=== PATIENT | female | born 1985 | race Caucasian/White ===

== ENCOUNTER 2019-06-01 16:23 | Emergency (ER) | payer BC ==
--- NOTE | 2019-06-01 16:45 | PDOC ---
Rapid Medical Evaluation Time Seen by Provider: 06/01/19 16:39 Medical Evaluation: Allergies Allergy/AdvReac Type Severity Reaction Status Date / Time No Known Allergies Allergy Verified 06/01/19 16:39 06/01/19 16:45 Pt c/o: vag bleeding, about 9 weeks via IVF pt on brief exam: vss, pt ordered for: u/s , labs, urine pt to proceed to the ED Discharge Disposition - Diagnosis Vagina bleeding - Referrals - Patient Instructions - Post Discharge Activity
[2019-06-01 16:46] VITALS: BMI 23.0
--- NOTE | 2019-06-01 17:23 | PDOC ---
History of Present Illness - General Stated Complaint: ABD PAIN/VAGINAL BLEEDING/9 WKS PREG Time Seen by Provider: 06/01/19 16:39 Past History - Past Medical History Allergies/Adverse Reactions: Allergies Allergy/AdvReac Type Severity Reaction Status Date / Time No Known Allergies Allergy Verified 06/01/19 16:39 COPD: No Other medical history: IVF by hx - Surgical History Abdominal Surgery: Yes (polyps in uterus) - Psycho Social/Smoking Cessation Hx Smoking History: Never smoked Hx Alcohol Use: No Drug/Substance Use Hx: No *Physical Exam - Vital Signs Last Vital Signs Temp Pulse Resp BP Pulse Ox 98.1 F 71 18 106/70 99 06/01/19 16:43 06/01/19 16:43 06/01/19 16:43 06/01/19 16:43 06/01/19 16:43 ED Treatment Course - LABORATORY CBC & Chemistry Diagram: 06/01/19 18:40 06/01/19 18:40 Medical Decision Making - Medical Decision Making 06/01/19 17:18 HPI: 33yo F (miscarriage 12/2018 at 4wks; this twins), hx Raynaud's, 9w5d by TVUS (05/28/19 TVUS 9w1d, LMP 03/05/19, IVF transfer 04/11/19) with twins s/p 1 fetus stopping development with projected reabsorption ~2wks ago (with decline in HCG since then, HCG 05/28/19 110,330) presents from home with 2 days light vaginal spotting, lower abdominal cramping, and lower back pain. Vaginal spotting of dark brown blood without clots or tissue fill ~1 panty liner since started yesterday, light yesterday then had 1 "gush" of blood today with some "grains". Denies trauma, heavy exertion, prior bleeding. Pain is diffuse lower abdominal/pelvic cramping radiating to b/l flanks. Denies hx kidney stones, UTI, pyelo. Stopped progesterone on Tuesday. Tuesday had TVUS and HCG and told baby A was fine with normal FHR, 9w1d, HCG 110,330. HCG has been declining since baby B stopped development ~2wks ago and told HCG may continue to decline as Baby B is resorbed. Endorses intermittent nausea and vomiting daily worse in AM x4 wks, able to keep down food and water. No pain or nausea meds tried and doesn't want any. Takes PNVs. Endorses 4wks white creamy discharge without smell or irritation, no changes recently. Denies water breaking, movement, vaginal irritation, fever, chills, fatigue, headache, dizziness, numbness/tingling, weakness, vision changes, shortness of breath, cough, chest pain, palpitations, leg swelling, blood in stool, diarrhea, constipation, dysuria, hematuria, urgency/frequency, confusion. PCP - [facility] IVF - Dr Rajput Senior Ruby Developer - Dr Thomas (never seen, first appt scheduled 06/04/19) ROS: Constitutional: Negative for chills, fever, fatigue, diaphoresis. HENT: Negative for sore throat, rhinorrhea, congestion. Eyes: Negative for visual disturbance. Respiratory: Negative for shortness of breath, cough, and wheezing. Cardiovascular: Negative for chest pain, palpitations, and leg swelling. Gastrointestinal: Positive for abdominal pain, nausea, vomiting. Negative for blood in stool, constipation, diarrhea. Genitourinary: Positive for vaginal bleeding, pelvic pain, flank pain b/l. Negative for dysuria and hematuria. Musculoskeletal: Positive for lower back pain. Negative for myalgias and neck pain. Skin: Negative for rash. Neurological: Negative for light-headedness, dizziness, vertigo, syncope, weakness, numbness and headaches. Psychiatric/Behavioral: Negative for behavioral problems and confusion. PE: Gen: Alert, NAD, comfortable-appearing. HEENT: PERRL, EOMI, MMM, NCAT. No conjunctival pallor. Sclera are non-icteric. CV: Regular rate and rhythm. No murmurs, rubs, or gallops. PULM: No resp distress. CTAB, no wheezes, rales, or rhonchi. ABD: soft, mild diffuse lower abdominal TTP, ND, no rebound tenderness or guarding, no CVA tenderness. PELVIC: External genitalia unremarkable. Minimal dark brown blood without clots or tissue and no discharge seen with speculum exam. Cervix visualized and is unremarkable (closed in appearance without any protruding material or active bleeding). Bimanual exam without cervical motion tenderness, adnexal tenderness, or any masses appreciated. Os closed by bimanual exam. BACK: No TTP of c/t/l-spine. No step-offs or deformities. +slight b/l flank/ paraspinal L-spine TTP. MSK: No bony deformities. 2+ pulses in all extremities. NEURO: AAOx3. PERRL. No gross CN deficits. Strength and sensation grossly intact throughout. EXTREMITIES: No cyanosis. No clubbing. No edema. No calf tenderness. PSYCH: Normal mood and thought pattern. SKIN: Warm and dry. Normal capillary refill. No rashes. No jaundice. MDM: 33yo F (miscarriage 12/2018 at 4wks; this twins), hx Raynaud's, 9w5d by TVUS (05/28/19 TVUS 9w1d, LMP 03/05/19, IVF transfer 04/11/19) with twins s/p 1 fetus stopping development with projected reabsorption ~2wks ago (with decline in HCG since then, HCG 05/28/19 110,330) presents from home with 2 days light vaginal spotting, lower abdominal cramping, and lower back pain. Hemodynamically stable, afebrile, os closed, minimal dark brown blood in vaginal canal without active bleeding from os, mild diffuse lower abdominal and lower back TTP. POCUS with Attending: single IUP w/ movement, FHR 175bpm, CRL 10w1d, no adnexal masses or cysts, no free fluid Most likely threatened (s) to Baby A and/or Baby B. Due to prior TVUS's and POCUS, very low concern for anembryonic , heterotopic , ectopic , or molar . Ddx also includes round ligament pain, ovarian torsion, Rh sensitization, ovarian cyst/cyst rupture. No longer actively bleeding on pelvic exam, no s/s of anemia, approx 1 liner of blood since yesterday - obtain CBC, but low concern for massive hemorrhage or anemia. Obtain UA/UC to evaluate for asymptomatic UTI. -CBC,CMP,T&S,HCG,UA/UC -TVUS -Pain and nausea management: pt refuses any medications -Dispo: pending w/u, likely d/c home 06/01/19 20:10 TVUS reviewed: nonviable twin A at 6w6d. Viable twin B at 10w2d. Labs reviewed: notable for B+, no anemia, no UTI Discussed inevitable on Baby A and threatened of Baby B. Will discharge home with synthetic chemist f/u scheduled with Dr Thomas on Tuesday. Return precautions given. Pt understands all discharge instructions and all questions were answered. Discharge - Discharge Information Problems reviewed: Yes Clinical Impression/Diagnosis: Vagina bleeding, Inevitable , Threatened miscarriage Condition: Stable Disposition: HOME - Admission No - Follow up/Referral Referrals: Jose F Thomas MD [Staff Physician] - - Patient Discharge Instructions Patient Printed Discharge Instructions: DI for Threatened Additional Instructions: You have been seen in the Emergency Department for your vaginal bleeding and cramping. Your exam, ultrasound, and labs indicate that you have one nonviable twin and one viable twin at this time. The nonviable twin will be inevitably aborted. The viable twin could continue as a normal but there is a change that it will be a miscarriage as well. You will need further evaluation by your Consumer Relations Specialist to monitor the progress. Go to your scheduled appointment with Dr Thomas this Tuesday. Return to the Emergency Department immediately if you experience worsening bleeding or pain, or any other new or worsening symptom. - Post Discharge Activity
[2019-06-01 19:23] LABS: BASO % 0.8 % (0-2.0); EOS % 0.9 % (0-4.5); HEMATOCRIT 34.7 % (32.4-45.2); HEMOGLOBIN 12.1 GM/dL (10.7-15.3); MCH 32.4 pg (25.7-33.7); MCHC 34.7 g/dl (32.0-36.0); MEAN CELL VOLUME 93.5 fl (80-96); MEAN PLT VOLUME 8.2 fl (7.5-11.1); MONO % 6.3 % (3.8-10.2); PH,URINE 6.5 (5.0-8.0); PLATELET COUNT 245 K/MM3 (134-434); RBC 3.72 M/mm3 (3.60-5.2); RDW 11.8 % (11.6-15.6); URINE APPEARANCE CLEAR; URINE BILIRUBIN NEGATIVE (NEGATIVE); URINE COLOR YELLOW; URINE GLUCOSE (UA) NEGATIVE (NEGATIVE); URINE KETONE NEGATIVE (NEGATIVE); URINE LEUK ESTERASE NEGATIVE (NEGATIVE); URINE NITRITE NEGATIVE (NEGATIVE); URINE PROTEIN NEGATIVE (NEGATIVE); URINE UROBILINOGEN 0.2 mg/dL (0.2-1.0); WHITE BLOOD COUNT 6.8 K/mm3 (4.0-10.0)
[2019-06-01 19:51] LABS: ALBUMIN 3.5 g/dl (3.4-5.0); BILIRUBIN,TOTAL 0.3 mg/dL (0.2-1); BLOOD UREA NITROGEN 7.3 mg/dL (7-18); CALCIUM 8.7 mg/dL (8.5-10.1); CREATININE 0.5 mg/dL (0.55-1.3); TOT PROT 6.7 g/dl (6.4-8.2)
[2019-06-01 20:58] VITALS: BP 113/61; PULSE 74; TEMP 98.3
--- NOTE | 2019-06-02 01:26 | PDOC ---
Documentation entered by Denia Handley SCRIBE, acting as scribe for Cory Johnson DO. Cory Johnson DO: This documentation has been prepared by the Ender morales Adrianna, SCRIBE, under my direction and personally reviewed by me in its entirety. I confirm that the documentation accurately reflects all work, treatment, procedures, and medical decision making performed by me. Attending Attestation - Resident Resident Name: Kenia Tate - [facility] HPI: The patient is a 33 year old female, currently at ~9 weeks 5 days gestation by last US (which showed twin gestation, one of which was being resorbed with failure to progress, coming in today for vaginal spotting and lower abdominal cramping that began earlier today. Patient notes she had a gush of brown fluid and some abdominal cramping. She is worried about the twin that is left. - Physicial Exam PE: GENERAL: Well developed, well nourished. Awake and alert. No acute distress. HEENT: Normocephalic, atraumatic. PERRLA, EOMI. No conjunctival pallor. Sclera are non-icteric. Moist mucous membranes. Oropharynx is clear. NECK: Supple. Full ROM. No JVD. Carotid pulses 2+ and symmetric, without bruits. No thyromegaly. No lymphadenopathy. CARDIOVASCULAR: Regular rate and rhythm. No murmurs, rubs, or gallops. Distal pulses are 2+ and symmetric. PULMONARY: No evidence of respiratory distress. Lungs clear to auscultation bilaterally. No wheezing, rales or rhonchi. ABDOMINAL: Soft. Non-tender. Non-distended. No rebound or guarding. No organomegaly. Normoactive bowel sounds. PELVIC: Defer to resident note. OS is closed. MUSCULOSKELETAL: Normal range of motion at all joints. No bony deformities or tenderness. No CVA tenderness. EXTREMITIES: No cyanosis. No clubbing. No edema. No calf tenderness. SKIN: Warm and dry. Normal capillary refill. No rashes. No jaundice. NEUROLOGICAL: Alert, awake, appropriate. Cranial nerves 2-12 intact. PSYCHIATRIC: Cooperative. Good eye contact. Appropriate mood and affect. - Medical Decision Making Assesment and Plan: This is a 33 year old female with vaginal bleeding and likely threatened miscarriage. Plan for Rh type, CBC to check hemoglobin, Beta HcG, comprehensive US, and reassessment. POCUS: Single live IUP. movement, FHR 175. No adnexal mass or cyst. No free fluid. MDM: Given that patient is no longer actively bleeding and the OS is closed, findings represent threatened miscarriage. Patient is B+ blood type, no indication for Rhogam. Will confirm and repeat. Reassessment: Patient is ready for discharge. Comprehensive US demonstrates one that is viable with a normal heart rate and crown rump length of 10 weeks 2 days. Other twin gestation is no longer viable, which is likely due to her vaginal bleeding. Patient has what appears to be one complete , with a nonviable twin at 6 weeks and 6 days and a viable twin at 10 weeks 2 days. Patient with threatened miscarriage. Patient's blood type is B+. No indication for Rhogam at this time. She has follow up with [facility] Tuesday. Patient's hemoglobin is stable, with stable vitals. She was given return precautions, and is stable for discharge.
== END 2019-06-01 20:45 | disposition home or self-care (01) ==
LOC: JER 16:23
DX: O20.0 Threatened abortion (principal); Z3A.09 9 weeks gestation of pregnancy; N93.9 Abnormal uterine and vaginal bleeding, unspecified
CPT/HCPCS: 36415; 76817-TC; 80053; 81003; 84702; 85025; 86850; 86900; 86901; 87086; 99284-25

== ENCOUNTER 2020-01-01 07:15 | Inpatient (IN) | payer BC, OTHER ==
--- OUTSIDE RECORDS SUMMARY | 2020-01-01 08:00 | XMS ---
:1985 Author Organization [facility] Name Relationship Address Phone UE Unavailable Unavailable Unavailable [employer]HER [address] [place] [address] Re-disclosure Warning The records that you are about to access may contain information from federally- assisted alcohol or drug abuse programs. If such information is present, then the following federally mandated warning applies: This information has been disclosed to you from records protected by federal confidentiality rules (42 CFR part 2). The federal rules prohibit you from making any further disclosure of this information unless further disclosure is expressly permitted by the written consent of the person to whom it pertains or as otherwise permitted by 42 CFR part 2. A general authorization for the release of medical or other information is NOT sufficient for this purpose. The Federal rules restrict any use of the information to criminally investigate or prosecute any alcohol or drug abuse patient.The records that you are about to access may contain highly sensitive health information, the redisclosure of which is protected by Article 27-F of the [facility] Public Health law. If you continue you may haveaccess to information: Regarding HIV / AIDS; Provided by facilities licensed or operated by the [facility] Office of Mental Health; or Provided by the [facility] Office for People With Developmental Disabilities. If such information is present, then the following [facility] mandated warning applies: This information has been disclosed to you from confidential records which are protected by state law. State law prohibits you from making any further disclosure of this information without the specific written consent of the person to whom it pertains, or as otherwise permitted by law. Any unauthorized further disclosure in violation of state law may result in a fine or fdc sentence or both. A general authorization for the release of medical or other information is NOT sufficient authorization for further disclosure. Insurance Providers Payer name Policy type Policy ID Covered Covered green party's Policy P daniel / Coverage green party ID relationship to [facility] type [place] SELF PAY SP INSURANCE
[2020-01-01] MEDS ORDERED: DEXTROSE 5%-LACTATED RINGERS 1,000 ML IV SCH (09:00)
--- NOTE | 2020-01-01 09:09 | HP ---
Past Medical History - Primary Care Physician PCP:: Jose F Thomas - Admission Chief Complaint: 34yo P0 with at EGA 40w3d admitted for labor induction. History of Present Illness: complicated by: AMA LGA baby unfavorable cervix GBS positive vaginal cx IVF History Source: Patient, Medical Record Limitations to Obtaining History: No Limitations - Past Medical History CLIENT SERVICE SUPERVISOR: No: Alzheimer's, CVA, Dementia, Migraine, Multiple Sclerosis, Peripheral Neuropathy, Parkinson's, Seizure, Syncope, TIA, Vertigo, Other Cardiovascular: No: AFIB, Aneurysm, Aortic Insufficiency, Aortic Stenosis, CAD, CHF, Deep Vein Thrombosis, HTN, Hyperlipdemia, FL, Mitral Insufficiency, Mitral Stenosis, Murmur, Pulmonary Hypertension, Other Pulmonary: No: Asthma, Bronchitis, Cancer, COPD, O2 Dependent, Pneumonia, Previously Intubated, Pulmonary Embolus, Pulmonary Fibrosis, Sleep Apnea, Other Gastrointestinal: No: Ascites, Cancer, Constipation, Crohn's Disease, Diverticulitis, Diverticulosis, Esophageal Varices, Gastritis, GERD, GI Bleed, Hemorrhoids, Hiatal Hernia, Inflamatory Bowel Disease, Irritable Bowel Disease, Pancreatitis, Peptic Ulcer Disease, Ulcerative Colitis, Other Hepatobiliary: No: Cirrhosis, Cholelithiasis, Cholecystitis, Choledocholith iasis, Hepatitis A, Hepatitis B, Hepatitis C, Other Renal/: No: Renal Failure, Renal Inusuff, BPH, Cancer, Hematuria, Hemodialysis, Neurogenic Bladder, Renal Calculi, UTI, Other ...: 2 ...Spon : 1 ... Weeks Gestation by Dates: 40.3 Heme/Onc: Yes: Anemia Infectious Disease: No: AIDS, C-Diff, Herpes Zoster, HIV, MRSA, STD's, Tuberculosis, VREF, Other Psych: No: Addictions, Anxiety, Bipolar, Depression, Panic, Psychosis, Schizophrenia, Other Rheumatology: Yes: Other (Nikolas's) ENT: No: Allergic Rhinitis, Sinusitis, Other Endocrine: No: Stephen's Disease, Brianna's Disease, Diabetes Insipidus, Diabetes Mellitus, Hyperparathyroidism, Hyperthyroidism, Hypothyroidism, Osteopenia, SIADH, Other Dermatology: No: Basal Cell, Cellulitis, Eczema, Melanoma, Psoriasis, Squamous Cell, Other - Past Surgical History Past Surgical History: Yes: None Hx Myomectomy: No Hx Transabdominal Cerclage: No Additional Surgical History: Hysteroscopy - Smoking History Smoking history: Never smoked Have you smoked in the past 12 months: No - Alcohol/Substance Use Hx Alcohol Use: No History of Substance Use: reports: None - Social History Usual Living Arrangement: Yes: With Spouse Do you think of yourself as: Straight/Heterosexual ADL: Independent Occupation: Teacher History of Recent Travel: No Home Medications - Allergies Allergies/Adverse Reactions: Allergies Allergy/AdvReac Type Severity Reaction Status Date / Time bee venom protein (honey bee) Allergy Severe Difficulty Verified 01/01/20 10:04 Breathing shellfish derived Allergy Severe Difficulty Verified 01/01/20 10:04 Breathing - Home Medications Home Medications: Ambulatory Orders Vitamins (Sjr) - 1 tab PO DAILY 01/01/20 Family Medical History Family History: Unremarkable Review of Systems - Review of Systems Constitutional: reports: No Symptoms Eyes: reports: No Symptoms HENT: reports: No Symptoms Neck: reports: No Symptoms Cardiovascular: reports: No Symptoms Respiratory: reports: No Symptoms Gastrointestinal: reports: No Symptoms Genitourinary: reports: No Symptoms Breasts: reports: No Symptoms Reported Musculoskeletal: reports: No Symptoms Integumentary: reports: No Symptoms Neurological: reports: No Symptoms Endocrine: reports: No Symptoms Hematology/Lymphatic: reports: No Symptoms Psychiatric: reports: No Symptoms Pain Intensity: 0 Physical Exam - Maternity Constitutional: Yes: Well Nourished, No Distress, Calm Eyes: Yes: WNL, Conjunctiva Clear, EOM Intact HENT: Yes: WNL, Atraumatic, Normocephalic Neck: Yes: WNL, Supple, Trachea Midline Cardiovascular: Yes: WNL, Regular Rate and Rhythm Lungs: Clear to auscultation, Normal air movement Breast(s): Yes: WNL - Abdominal Exam/OB Fundal Height: 41 Number of Fetuses: Single Presentation: Vertex Contractions: Yes Regularity: Irregular Intensity: Unaware Monitor Mode: External Heart Rate (range): 130 Heart Rate Location: Midline Category: I Accelerations: Uniform Decelerations: None - Vaginal Exam/OB Vaginal Bleeding: No Speculum Exam: No Dilatation (cm): 0 Effacement (%): 0 Amniotic Membrane Status: Intact Presentation: Vertex/Position Station: -4 (Gynecoid pelvimetry, EFW ~4100 gm) - Physical Exam Musculoskeletal: Yes: WNL Extremities: Yes: WNL Edema: No Integumentary: Yes: WNL Deep Tendon Reflex Grade: Normal +2 ...Motor Strength: WNL Psychiatric: Yes: WNL, Alert, Oriented Hemorrhage Risk Assessment - Risk Factors Medium Risk Factors: Yes: EFW greater than 4000g High Risk Factors: Yes: None Risk Score: 1 Risk Level: Medium Risk Imaging - Results Ultrasound: Report Reviewed Assessment/Plan 34yo P0 with at EGA 40w3d admitted for labor induction. Pt is not in labor. Fetus with Category I tracing. Adequate gynecoid pelvimetry on exam. We had long discussion re: risks, benefits, and alternatives of labor induction. I explained the options of expectant management awaiting spontaneous labor, induction of labor, and elective section. The risks of uterine tachysystole, distress, uterine rupture, need for emergency C/S, hemorrhage, infection, scarring, etc. were discussed. We also discussed the risks of meconium aspiration, shoulder dystocia, and anesthesia options. The pt requested to proceed with induction. We discussed the alternative methods of induction with Cervidil, Cytotec, Folley ballon, and pitocin. The pt prefers Cervidil followed by pitocin, if needed.
[2020-01-01] MEDS ORDERED: DINOPROSTONE 10 MG VAGINAL SUPPOSITORY VG ONE (09:15)
[2020-01-01 10:01] VITALS: BMI 28.8
[2020-01-01 10:42] LABS: BASO % 0.4 % (0-2.0); EOS % 0.8 % (0-4.5); HEMATOCRIT 33.1 % (32.4-45.2); HEMOGLOBIN 11.1 GM/dL (10.7-15.3); LYMPH % 19.6 % (8-40); MCH 31.9 pg (25.7-33.7); MCHC 33.6 g/dl (32.0-36.0); MEAN CELL VOLUME 94.9 fl (80-96); MEAN PLT VOLUME 8.5 fl (7.5-11.1); MONO % 5.1 % (3.8-10.2); NEUT % 74.1 % (42.8-82.8); PLATELET COUNT 239 K/MM3 (134-434); RBC 3.49 M/mm3 (3.60-5.2); RDW 12.2 % (11.6-15.6); WHITE BLOOD COUNT 9.7 K/mm3 (4.0-10.0)
[2020-01-01 10:47] LABS: INR 0.94 (0.83-1.09); PROTHROMBIN TIME (PATIENT) 11.1 SEC (9.7-13.0)
[2020-01-01 10:49] LABS: ACTIVATED PTT 23.7 SECONDS (25.2-36.5)
[2020-01-01 11:02] LABS: BLOOD UREA NITROGEN 9.9 mg/dL (7-18); CALCIUM 8.5 mg/dL (8.5-10.1); CREATININE 0.7 mg/dL (0.55-1.3); POTASSIUM 3.7 mmol/L (3.5-5.1)
--- NOTE | 2020-01-01 19:34 | PN ---
Ante-Partal Exam - Subjective Subjective: Pt is feeling mild contractions. No other complaints. Vital Signs: Vital Signs Temperature 98.1 F 01/01/20 18:00 Pulse Rate 88 01/01/20 18:00 Respiratory Rate 01/01/20 18:00 Blood Pressure 110/72 01/01/20 18:00 O2 Sat by Pulse Oximetry (%) Bleeding: No Headache: No Visual changes: No Right upper quadrant pain: No Pain (scale 1-10): 4 - Contractions Contractions: Yes Regularity: Irregular Intensity: Moderate Monitor Mode: External - Exam during Labor Heart Rate: 130 Variability: Moderate Heart Rate Location: Midline Category: I Monitor Accelerations: Present Monitor Decelerations: None Exam: Vaginal Dilatation (cm): 0.5 Effacement (%): 30 Amniotic Membrane Status: Intact Presentation: Vertex Station: -4 Remarks: Cervix appears softer - Intrapartum Hemorrhage Risk Medium Risk Factors: None High Risk Factors: None Risk Score: 0 Risk Level: Low Risk - Assessment/Plan Assessment/Plan: 34yo P0 with at EGA 40w3d undergoing labor indx. The cervidil is in place. The cervix is slightly softer and more dilated. Fetus with Category I tracing. plan to continue labor indx. Risks of pitocin, failed indx, maternal & risks reviewed. Pt prefers to continue, as planned.
--- NOTE | 2020-01-01 22:58 | PN ---
Ante-Partal Exam - Subjective Subjective: No complaints Vital Signs: Vital Signs Temperature 98.0 F 01/01/20 22:00 Pulse Rate 76 01/01/20 22:00 Respiratory Rate 18 01/01/20 22:00 Blood Pressure 138/72 01/01/20 22:00 O2 Sat by Pulse Oximetry (%) Bleeding: No Headache: No Visual changes: No Right upper quadrant pain: No Pain (scale 1-10): 0 - Contractions Contractions: Yes Regularity: Irregular Intensity: Mild Monitor Mode: External - Exam during Labor Heart Rate: 130 Variability: Moderate Heart Rate Location: Midline Category: I Monitor Accelerations: Present Monitor Decelerations: None Exam: Vaginal Dilatation (cm): 1 Amniotic Membrane Status: Intact Presentation: Vertex Station: -4 Remarks: EFW 4100 gram, gynecoid pelvis - Intrapartum Hemorrhage Risk Medium Risk Factors: None High Risk Factors: None Risk Score: 0 Risk Level: Low Risk - Assessment/Plan Assessment/Plan: 34yo P0 with post erm undergoing labor indx. Fetus with Category I tracing Still unfavorable cervical exam. The pt has adequate gynecoid pelvimetry We discussed the options of serial induction with Cervidil, cytotec, cervical balloon, or C- section. The pt prefers balloon with pitocin. The cervical balloon was inserted w/o complications. Plan to start pitocin.
[2020-01-01] MEDS ORDERED: OXYTOCIN 30 UNITS in 0.9% NS 30 UNIT/500 ML INFUS.BAG IVPB SCH (23:15)
[2020-01-01] MEDS ORDERED: OXYTOCIN 30 UNITS in 0.9% NS 30 UNIT/500 ML INFUS.BAG IVPB ONE (23:21)
[2020-01-02] MEDS ORDERED: AMPICILLIN SODIUM 2 GM VIAL ONE (06:26)
[2020-01-02] MEDS ORDERED: SODIUM CHLORIDE 100 ML IVPB ONE (06:27)
[2020-01-02] MEDS ORDERED: AMPICILLIN - 2 GM in SODIUM CHLORIDE 100 ML IVPB ONE (06:30)
[2020-01-02] MEDS ORDERED: OXYTOCIN 30 UNITS in 0.9% NS 30 UNIT/500 ML INFUS.BAG IVPB ONE (07:45)
[2020-01-02] MEDS ORDERED: PCA PUMP NR ONE (08:21)
[2020-01-02] MEDS ORDERED: FENTANYL/BUPIVACAINE/NS/PF - PCEA - 50 ML DISP.SYRIN EP ONE ×3 (08:21→16:52)
[2020-01-02] MEDS ORDERED: ELECTROLYTE-148 SOLN 500 ML IV ONE (08:38)
[2020-01-02] MEDS: ELECTROLYTE-148 SOLN 1,000 ML IV SCH (08:50)
[2020-01-02] MEDS ORDERED: AMPICILLIN SODIUM 1 GM VIAL ONE ×2 (09:54→15:03)
[2020-01-02] MEDS ORDERED: NALOXONE HCL 0.4 MG/ML VIAL IVPUSH PRN (10:12)
[2020-01-02] MEDS ORDERED: FENTANYL/BUPIVACAINE/NS/PF - PCEA - 50 ML DISP.SYRIN EP SCH (10:15)
[2020-01-02] MEDS: AMPICILLIN - 1 GM in SODIUM CHLORIDE 100 ML IVPB SCH ×2 (10:30→14:30)
--- NOTE | 2020-01-02 17:24 | PN ---
Ante-Partal Exam - Subjective Subjective: Pt is w/o complaints. She was examined by me this morning at 8:15 am and the cervix was noted to be 3-4 cm/80%/-1, she was re-examined by Dr. Greene at 1:50pm and noted to be 5/80/-2. I examined the pt at 4:50pm and she was found to be 4-5cm/60/-2 with edematous cervix. The pt was also noted to have category II tracing (variable decels) that later resolved and became Category I after pitocin was stopped. The pt is w/o complaints. A C/S was advised. Vital Signs: Vital Signs Temperature 98.2 F 01/02/20 16:00 Pulse Rate 68 01/02/20 16:30 Respiratory Rate 20 01/02/20 16:30 Blood Pressure 107/70 01/02/20 16:30 O2 Sat by Pulse Oximetry (%) 100 01/02/20 16:30 Bleeding: No Headache: No Visual changes: No Right upper quadrant pain: No Pain (scale 1-10): 0 - Contractions Contractions: Yes Regularity: Regular Intensity: Unaware Monitor Mode: External - Exam during Labor Heart Rate: 130 Variability: Moderate Heart Rate Location: Midline Category: I Monitor Accelerations: Present Monitor Decelerations: None Exam: Vaginal Dilatation (cm): 4.5 Effacement (%): 60 Amniotic Membrane Status: Leaking Amniotic Fluid: Clear Presentation: Vertex Station: -2 Remarks: Cervical edema - Intrapartum Hemorrhage Risk Medium Risk Factors: None High Risk Factors: None Risk Score: 0 Risk Level: Low Risk - Assessment/Plan Assessment/Plan: 34yo P0 with at 40w 3d admitted for labor indx. The pt with arrest of dilation. Fetus with Category I tracing now. We discussed the tx options and I advised to proceed with C/S at this time. We discussed the risks and benefits of C/S at length, including but not limited to scarring, pain, bleeding, infection, injury to underlying organs and structures, need for additional surgery to repair/treat any problems or complications, complications/injuries, etc. The pt verbalized her understanding and requested to proceed with surgery. The pt is aware that all surgeries have risks and no guarantees can be provided.
[2020-01-02] MEDS ORDERED: MORPHINE 5 MG/10 ML AMP - FOR COMPOUNDING USE ONLY ONE (17:51)
[2020-01-02] MEDS ORDERED: LIDO 2%/EPI 1:200000 PRESRVFRE (20 ML SDVIAL) ONE (18:01)
[2020-01-02] MEDS ORDERED: OXYTOCIN 10 UNITS/ML VIAL ONE (18:33)
[2020-01-02] MEDS ORDERED: OXYTOCIN 20 UNITS in 0.9% NS 20 UNIT/1,000 ML INFUS.BAG IV ONE (18:33)
--- NOTE | 2020-01-02 18:45 | PN ---
Progress Note (short form) - Note Progress Note: Attended C/S for this 34yrs old mother - case of IVF PNL-Nl, GBS- Pos. Rx with Amp x 3 doses C/S for FTP/ NRFHT delivered, cried soon after suctioned & dried Cord 3V 9/9 PE exam: Infant clinically stable - pink well perfused HEENT- normocephalic, AFOF, Chest B/L symm. B/L good air entry No heart murmur, All pulses 2+ No organomegaly - nl ,male - Testis B/L descended FROM , nl hip exam Good tone and activity RNBC Watch for Resp distress Encourage BF/ Bonding
--- NOTE | 2020-01-02 19:16 | PN ---
Progress Note (short form) - Note Progress Note: I assisted Dr. Thomas at the c/section for the entirety of the case.
[2020-01-02] MEDS: OXYTOCIN 20 UNITS in 0.9% NS 20 UNIT/1,000 ML INFUS.BAG IV SCH (19:30)
[2020-01-02 19:56] LABS: CORD BASE EXCESS -5.4 mmol/L (0-2); CORD HCO3 22.3 mmHg (20-29); CORD PCO2 50.5 mmHg (30-78); CORD pH 7.262 (7.14-7.44)
[2020-01-02 20:00] LABS: CORD HCO3 23.7 mmHg (20-29); CORD PCO2 63.8 mmHg (30-78); CORD pH 7.188 (7.14-7.44)
[2020-01-02] MEDS ORDERED: ONDANSETRON 4 MG/2 ML VIAL IVPUSH PRN (20:00)
[2020-01-02] MEDS ORDERED: IBUPROFEN 600 MG TABLET (FP) PO PRN (20:08)
[2020-01-02] MEDS ORDERED: IBUPROFEN 800 MG/8 ML IJ IVPB PRN (20:08)
[2020-01-02] MEDS ORDERED: SENNOSIDES/DOCUSATE COMBO (SENNA PLUS) TABLET (UD) PO PRN (20:08)
[2020-01-02] MEDS ORDERED: BENZOCAINE 28 GM HEMORRHOIDAL OINTMENT TP PRN (20:08)
[2020-01-02] MEDS ORDERED: BENZOCAINE 20% 57 GM BOTTLE TP PRN (20:08)
[2020-01-02] MEDS ORDERED: oxyCODONE HCL 5 MG TABLET PO PRN (20:08)
[2020-01-02] MEDS ORDERED: METHYLERGONOVINE MALEATE 0.2 MG/1 ML AMP IM PRN (20:08)
[2020-01-02] MEDS ORDERED: WITCH HAZEL 50% (TUCKS) 40 PAD/JAR PAD TP PRN (20:08)
--- NOTE | 2020-01-02 20:15 | PN ---
Delivery - Delivery Section: Primary, Low Flap Transverse Type of Anesthesia: Epidural EBL (cc): 600 Delivery, Single - Stages of Labor Date 1st Stage Initiatied: 01/02/20 Time 1st Stage Initiated: 03:00 Date of Delivery: 01/02/20 Time of Delivery: 18:34 Time Placenta Delivered: 18:36 Placenta: Yes: Spontaneous, Normal Configuration - Condition of Infant Blue Crabber/Carrier Blower Present: Yes Name: Brice Kuhn Gender: Male Weight: 4.167 kg Position: Right, OT Total Hours ROM (Hrs/Mins): 12hrs 4min - 1 Minute Total Score: 8 5 Minutes Total Score: 9 - Stewart Feeding Plan Initial Plan: Elected not to breastfeed exclusively throughout hospitalization Benefits of Exclusively reinforced: Yes
--- NOTE | 2020-01-02 20:19 | OP ---
Operative Note - Note: Operative Date: 01/02/20 Pre-Operative Diagnosis: Post term at EGA 40w4d. Arrest of dilation. AMA. IVF . Suspected macrosomia Operation: Primary LT C/S Findings: Live baby boy in vts presentation, no meconium in amniotic fluid, normal uterus/tubes/ovaries, 8-9 Post-Operative Diagnosis: Same as Pre-op Surgeon: Jose F Thomas Data Warehousing Manager: Peter Dooley Anesthesiologist/AIR VALUE TESTER: Berto Shannon Anesthesia: Epidural Specimens Removed: Placenta Estimated Blood Loss (mls): 600 Drains & Tubes with Location: [place] cath Drains, Volume Out (mls): 200 Blood Volume Replaced (mls): 0 Fluid Volume Replaced (mls): 2,000 Operative Report Dictated: Yes
[2020-01-03 07:49] LABS: BASO % 0.3 % (0-2.0); EOS % 0.3 % (0-4.5); HEMATOCRIT 29.5 % (32.4-45.2); MCHC 33.7 g/dl (32.0-36.0); MEAN PLT VOLUME 8.3 fl (7.5-11.1); MONO % 4.2 % (3.8-10.2); NEUT % 87.2 % (42.8-82.8); PLATELET COUNT 196 K/MM3 (134-434); RBC 3.11 M/mm3 (3.60-5.2); RDW 12.6 % (11.6-15.6); WHITE BLOOD COUNT 15.1 K/mm3 (4.0-10.0)
[2020-01-03] MEDS: ENOXAPARIN NA (PORCINE) 40 MG/0.4 ML DISP.SYRIN SQ SCH (09:58)
--- NOTE | 2020-01-03 10:31 | PN ---
Post Progress Note - Subjective Subjective: Patient without acute complaints. Tolerating clears, without complaints of nausea or vomiting. No ambulation yet. Denies fevers or chills. Pain well controlled Midd[place] in place, draining clear fluid Denies flatus. Post Day: 1 Type of Delivery: Primary C/S Vital Signs: Vital Signs Temperature 98.4 F 01/03/20 06:00 Pulse Rate 95 H 01/03/20 06:00 Respiratory Rate 20 01/03/20 08:00 Blood Pressure 118/65 01/03/20 06:00 O2 Sat by Pulse Oximetry (%) 95 01/03/20 06:00 Breast Exam: Yes: Soft Uterus: Yes: Fundus Firm, Fundus @ umbilicus Incision: Yes: Dressing dry and intact Abdomen/GI: Yes: Abdomen soft, Abdominal Distention, Tender (incisional), Tolera ting PO. No: Passing flatus Lochia: Yes: Rubra Lochia, amount: Moderate Extremities: Yes: Calves non-tender. No: Edema - Labs Labs: CBC WBC 15.1 K/mm3 (4.0-10.0) H 01/03/20 07:28 RBC 3.11 M/mm3 (3.60-5.2) L 01/03/20 07:28 Hgb 10.0 GM/dL (10.7-15.3) L 01/03/20 07:28 Hct 29.5 % (32.4-45.2) L 01/03/20 07:28 MCV 95.0 fl (80-96) 01/03/20 07:28 MCH 32.0 pg (25.7-33.7) 01/03/20 07:28 MCHC 33.7 g/dl (32.0-36.0) 01/03/20 07:28 RDW 12.6 % (11.6-15.6) 01/03/20 07:28 Plt Count 196 K/MM3 (134-434) 01/03/20 07:28 MPV 8.3 fl (7.5-11.1) 01/03/20 07:28 Absolute Neuts (auto) 13.1 K/mm3 (1.5-8.0) H 01/03/20 07:28 Neutrophils % 87.2 % (42.8-82.8) H 01/03/20 07:28 Lymphocytes % 8.0 % (8-40) D 01/03/20 07:28 Monocytes % 4.2 % (3.8-10.2) 01/03/20 07:28 Eosinophils % 0.3 % (0-4.5) 01/03/20 07:28 Basophils % 0.3 % (0-2.0) 01/03/20 07:28 Nucleated RBC % 0 % (0-0) 01/03/20 07:28 Assessment/Plan 28 yo POD#1 s/p primary CD 1. Continue routine postoperative care. 2. CBC with mild asymptomatic anemia 3. Rh positive status, no rhogam indicated. 4. Encourage ambulation and incentive spirometer use 5. Continue oral pain medication 6. Discussed / pumping Instruction given 7. Anticipate discharge home postoperative day #3 or #4
[2020-01-03] MEDS: ACETAMINOPHEN 325 MG TABLET (FP) PO PRN ×2 (10:32→16:40)
[2020-01-03] MEDS: SIMETHICONE 80 MG TAB.CHEW (FP) PO PRN ×2 (10:32→16:39)
[2020-01-03] MEDS: IBUPROFEN 600 MG TABLET (FP) PO PRN ×2 (10:33→16:40)
[2020-01-03] MEDS: PRENATAL VITAMINS W/ FOLIC ACID TABLET (FP) PO SCH (10:35)
--- NOTE | 2020-01-03 12:03 | PN ---
Progress Note (short form) - Note Progress Note: Anesthesia Post Op Note Pt s/p spinal for c/s Pt awake alert denies h/a, n/v Mild puritis, good pain control Ambul well No urinary retention VSS no apparent anesthesia complications Devora Low.
[2020-01-03] MEDS ORDERED: BISACODYL 10 MG SUPP.RECT RC PRN (20:09)
[2020-01-04] MEDS: IBUPROFEN 600 MG TABLET (FP) PO PRN ×4 (01:33→21:09)
[2020-01-04] MEDS: ACETAMINOPHEN 325 MG TABLET (FP) PO PRN ×4 (01:34→21:10)
[2020-01-04] MEDS: SIMETHICONE 80 MG TAB.CHEW (FP) PO PRN ×4 (01:35→21:09)
--- NOTE | 2020-01-04 06:46 | PN ---
Progress Note (short form) - Note Progress Note: POD 2 , s/p c/s has mild low abdominal discomfort, passing gas. no N/V , tolorating diet. CBC, BMP 01/03/20 07:28 01/01/20 10:15 Last Vital Signs Temp Pulse Resp BP Pulse Ox 97.7 F 78 18 108/66 98 01/03/20 22:00 01/03/20 22:00 01/03/20 22:00 01/03/20 22:00 01/03/20 22:00 abdomen soft, no distension, no cva incision dry, clean , no discharge no calf tenderness no excess vaginal bleeding plan ambulate , advance diet cbc in am DVT prophylaxis
[2020-01-04] MEDS: AMPICILLIN - 1 GM in SODIUM CHLORIDE 100 ML IVPB SCH (07:39)
[2020-01-04] MEDS: ELECTROLYTE-148 SOLN 1,000 ML IV SCH (09:39)
[2020-01-04] MEDS: OXYTOCIN 20 UNITS in 0.9% NS 20 UNIT/1,000 ML INFUS.BAG IV SCH (09:39)
[2020-01-04] MEDS: PRENATAL VITAMINS W/ FOLIC ACID TABLET (FP) PO SCH (09:43)
[2020-01-04] MEDS: ENOXAPARIN NA (PORCINE) 40 MG/0.4 ML DISP.SYRIN SQ SCH (09:43)
[2020-01-04 23:38] VITALS: BP 119/68; PULSE 88; TEMP 98.6
[2020-01-05] MEDS: IBUPROFEN 600 MG TABLET (FP) PO PRN (07:32)
[2020-01-05] MEDS: SIMETHICONE 80 MG TAB.CHEW (FP) PO PRN (07:32)
[2020-01-05] MEDS: ACETAMINOPHEN 325 MG TABLET (FP) PO PRN (07:32)
[2020-01-05 07:50] LABS: BASO % 0.3 % (0-2.0); EOS % 1.2 % (0-4.5); HEMATOCRIT 28.6 % (32.4-45.2); HEMOGLOBIN 9.4 GM/dL (10.7-15.3); LYMPH % 21.7 % (8-40); MCHC 33.1 g/dl (32.0-36.0); MEAN CELL VOLUME 96.8 fl (80-96); MEAN PLT VOLUME 8.1 fl (7.5-11.1); MONO % 4.7 % (3.8-10.2); NEUT % 72.1 % (42.8-82.8); PLATELET COUNT 246 K/MM3 (134-434); RBC 2.95 M/mm3 (3.60-5.2); RDW 12.4 % (11.6-15.6); WHITE BLOOD COUNT 9.9 K/mm3 (4.0-10.0)
[2020-01-05] MEDS: PRENATAL VITAMINS W/ FOLIC ACID TABLET (FP) PO SCH (09:26)
[2020-01-05] MEDS: ENOXAPARIN NA (PORCINE) 40 MG/0.4 ML DISP.SYRIN SQ SCH (09:26)
--- NOTE | 2020-01-05 11:35 | PN ---
Post Progress Note - Subjective Subjective: Patient without acute complaints. Tolerating clears, without complaints of nausea or vomiting. No ambulation yet. Denies fevers or chills. Pain well controlled Midd[place] in place, draining clear fluid +BM x 2 Post Day: 3 Type of Delivery: Primary C/S Vital Signs: Vital Signs Temperature 98.6 F 01/04/20 22:00 Pulse Rate 88 01/04/20 22:00 Respiratory Rate 16 01/05/20 09:00 Blood Pressure 119/68 01/04/20 22:00 O2 Sat by Pulse Oximetry (%) 98 01/05/20 09:00 Breast Exam: Yes: Soft Uterus: Yes: Fundus Firm Incision: Yes: Sutures intact Abdomen/GI: Yes: Abdomen soft Lochia: Yes: Rubra Lochia, amount: Small Extremities: Yes: Calves non-tender Perineum: Yes: Intact Activity: Ambulating - Labs Labs: CBC WBC 9.9 K/mm3 (4.0-10.0) 01/05/20 07:25 RBC 2.95 M/mm3 (3.60-5.2) L 01/05/20 07:25 Hgb 9.4 GM/dL (10.7-15.3) L 01/05/20 07:25 Hct 28.6 % (32.4-45.2) L 01/05/20 07:25 MCV 96.8 fl (80-96) H 01/05/20 07:25 MCH 32.0 pg (25.7-33.7) 01/05/20 07:25 MCHC 33.1 g/dl (32.0-36.0) 01/05/20 07:25 RDW 12.4 % (11.6-15.6) 01/05/20 07:25 Plt Count 246 K/MM3 (134-434) D 01/05/20 07:25 MPV 8.1 fl (7.5-11.1) 01/05/20 07:25 Absolute Neuts (auto) 7.2 K/mm3 (1.5-8.0) 01/05/20 07:25 Neutrophils % 72.1 % (42.8-82.8) 01/05/20 07:25 Lymphocytes % 21.7 % (8-40) D 01/05/20 07:25 Monocytes % 4.7 % (3.8-10.2) 01/05/20 07:25 Eosinophils % 1.2 % (0-4.5) D 01/05/20 07:25 Basophils % 0.3 % (0-2.0) 01/05/20 07:25 Nucleated RBC % 0 % (0-0) 01/05/20 07:25 Assessment/Plan 34yo P 1 s/p Primary c/section D/C today NPV x 6wks RTO 1 wk Breasting discussed Baby boy circumcised
--- NOTE | 2020-01-05 12:14 | DS ---
Physical Exam-AUTO BODY ESTIMATOR Vital Signs: Vital Signs Temperature 98.6 F 01/04/20 22:00 Pulse Rate 88 01/04/20 22:00 Respiratory Rate 16 01/05/20 09:00 Blood Pressure 119/68 01/04/20 22:00 O2 Sat by Pulse Oximetry (%) 98 01/05/20 09:00 Constitutional: Yes: Well Nourished, No Distress, Calm Eyes: Yes: WNL, Conjunctiva Clear, EOM Intact HENT: Yes: WNL, Atraumatic, Normocephalic Neck: Yes: WNL, Supple, Trachea Midline Cardiovascular: Yes: WNL, Regular Rate and Rhythm Respiratory: Yes: WNL, Regular, CTA Bilaterally Gastrointestinal: Yes: WNL, Normal Bowel Sounds, Soft ...Rectal Exam: Yes: Deferred Renal/: Yes: WNL ....Post : Yes: Uterus firm, Uterus non-tender, Slight lochia rubra Breast(s): Yes: WNL Musculoskeletal: Yes: WNL Extremities: Yes: WNL Edema: No Integumentary: Yes: WNL Wound/Incision: Yes: Clean/Dry, Well Approximated, Sutures Intact Neurological: Yes: WNL, Alert, Oriented ...Motor Strength: WNL Psychiatric: Yes: WNL, Alert, Oriented Labs: CBC, BMP 01/05/20 07:25 01/01/20 10:15 Delivery - Delivery Section: Primary, Low Flap Transverse Type of Anesthesia: Epidural EBL (cc): 600 Delivery, Single - Stages of Labor Date 1st Stage Initiatied: 01/02/20 Time 1st Stage Initiated: 03:00 Date of Delivery: 01/02/20 Time of Delivery: 18:34 Time Placenta Delivered: 18:36 Placenta: Yes: Expressed, Manual Removal, Normal Configuration - Condition of Infant Resources Representative/Production Control Specialist Present: Yes Name: Brice Kuhn Gender: Male Weight: 4.167 kg Position: Right, OT Total Hours ROM (Hrs/Mins): 12hrs 4min - 1 Minute Total Score: 8 5 Minutes Total Score: 9 - Feeding Plan Initial Plan: Elected not to breastfeed exclusively throughout hospitalization Benefits of Exclusively reinforced: Yes Discharge Summary Problems reviewed: Yes Reason For Visit: INDUCTION OF LABOR Post term , AMA, IVF , arrest of dilation Procedures: Principal: Primary LT C/S Hospital Course: Normal recovery Health Concerns: Postop anemia Plan of Treatment: Ambulation, continue vitamins Condition: Good - Instructions Diet, Activity, Other Instructions: Physical activity Resume your normal everyday activity as tolerated no heavy lifting or exercise until seen by your surgeon. You may walk unlimited jovana of and climb stairs. You may resume driving the car when you feel safe and comfortable behind the wheel. No sexual activity as instructed. Wound care If you have a bandage, leave it on, and keep dry for 48-72 hours. After that time discard the outer bandage. If they are tapes on the skin under the out of bandage leave them in place. They will peel off in the next 7 to 10 days. Do Not Peel them off. You may shower the day after surgery. If there are tapes present on the skin, you may shower over them. Diet There are no dietary restrictions. Eat healthy, high-fiber foods. Drink 6 to 8 glasses of liquid each day. This will assist in keeping your bowels are regular. Pain management You may take Tylenol or acetaminophen or Ibuprofen (for example, Motrin, Advil etc.) from my pain prescription medication is ordered should be taken as prescribed for moderate to severe pain. Call MD for any of the following: Severe pain not relieved by medication Fever of 101 or higher Excessive bleeding or drainage on dressing Inability to urinate Referrals: Jose F Thomas MD [Staff Physician] - 1 Week - Home Medications Comprehensive Discharge Medication List: Ambulatory Orders Vitamins (Sjr) - 1 tab PO DAILY 01/01/20 Prescription Drug Monitoring Program (I-STOP) results: I-STOP not reviewed
--- NOTE | 2020-01-07 18:42 | PATH ---
Surgical Pathology Report Patient Name: MARIZA KIMBROUGH Med. Rec. #: [id number] /Age/Gender: 1985 (Age: 34) / F Account: [id number] Location: [facility] OBS/CRUSHING FOREMAN Taken: 01/02/2020 Received: 01/03/2020 Reported: 01/07/2020 Physicians: Jose F Thomas M.D. Specimen(s) Received PLACENTA Clinical History , 40.4 gestational weeks Final Diagnosis PLACENTA, SECTION: 518 G THIRD TRIMESTER PLACENTA WITH TRIVASCULAR UMBILICAL CORD AND FEW MECONIUM-LADEN MACROPHAGES. Electronically Signed Pau Bedoya M.D. Gross Description The specimen is received fresh labeled placenta and is a 518 gram, 19.5 x 15.0 x 2.7 cm. placenta with attached membranes and umbilical cord. The attached membranes are campo, translucent with focal opacities and insert marginally. The umbilical cord measures 17 cm. in length and averages 1 cm. in diameter. The cord display velamentous insertion. No true knots or strictures are identified. Cut surface of the umbilical cord reveals 3 vessels. The surface is quezada-blue with minimal fibrin deposition and appropriate caliber vessels. The maternal surface is red-brown with focal defects. Sectioning reveals red-brown, spongy parenchyma. No lesions are identified. Overnight Cashier sections are submitted in three cassettes as follows: 1- membrane rolls and umbilical cord; 2-3- full thickness sections of placenta. /01/04/2020 saudi01/04/2020
== END 2020-01-05 15:07 | disposition home or self-care (01) | DRG 787 ==
LOC: JLDR 07:15 → J3N 01-02 21:34 → J3W 01-04 17:20
PROVIDERS: ADMIT Obstetrics & Gynecology; ATTEND Obstetrics & Gynecology
PROC: 3E0P7VZ Introduction of Hormone into Female Reproductive, Via Natural or Artificial Opening (ICD-10-PCS; 2020-01-01)
PROC: 10D00Z1 Extraction of Products of Conception, Low, Open Approach (ICD-10-PCS; principal; 2020-01-02)
PROC: 0U7C7ZZ Dilation of Cervix, Via Natural or Artificial Opening (ICD-10-PCS; 2020-01-02)
DX: O48.0 Post-term pregnancy (principal); O98.82 Other maternal infectious and parasitic diseases complicating childbirth; O62.0 Primary inadequate contractions; O61.0 Failed medical induction of labor; Z3A.40 40 weeks gestation of pregnancy; O36.63X0 Maternal care for excessive fetal growth, third trimester, not applicable or unspecified; Z37.0 Single live birth; B95.1 Streptococcus, group B, as the cause of diseases classified elsewhere; Z91.013 Allergy to seafood; Z91.038 Other insect allergy status
CPT/HCPCS: 36415; 36600; 80048; 82803; 85025; 85610; 85730; 86780; 86850; 86900; 86901; 87086; 87389; 88307-TC; U0003

== ENCOUNTER 2022-01-18 05:50 | Inpatient (IN) | payer BC, OTHER ==
[2022-01-18] MEDS ORDERED: CITRIC ACID/SODIUM CITRATE 30 ML UNIT-DOSE CUP PO ONE (06:30)
[2022-01-18] MEDS ORDERED: ELECTROLYTE-148 SOLN 500 ML IV ONE (06:30)
[2022-01-18] MEDS ORDERED: ELECTROLYTE-148 SOLN 1,000 ML IV SCH ×2 (07:00→08:30)
[2022-01-18 07:07] VITALS: BMI 29.2
[2022-01-18] MEDS ORDERED: PROPOFOL 20 ML ONE (07:47)
[2022-01-18] MEDS ORDERED: SUCCINYLCHOLINE CHLORIDE 200 MG/10 ML SYRINGE ONE (07:47)
[2022-01-18] MEDS ORDERED: KETAMINE HCL 500 MG/10 ML VIAL ONE (07:48)
[2022-01-18] MEDS ORDERED: morphine SULFATE (PF) 1 MG/2 ML SYRINGE ONE (07:48)
[2022-01-18] MEDS ORDERED: ePHEDrine SULFATE 50 MG/1 ML AMPULE ONE (07:52)
[2022-01-18] MEDS ORDERED: morphine SULFATE/PF 1 MG/2 ML (2cc Syringe - QUVA) SPIN ONE (08:31)
[2022-01-18] MEDS ORDERED: IBUPROFEN 800 MG/8 ML IJ IVPB PRN (09:40)
[2022-01-18] MEDS ORDERED: BENZOCAINE 28 GM HEMORRHOIDAL OINTMENT TP PRN (09:40)
[2022-01-18] MEDS ORDERED: BENZOCAINE 20% 57 GM BOTTLE TP PRN (09:40)
[2022-01-18] MEDS ORDERED: METHYLERGONOVINE MALEATE 0.2 MG/1 ML AMP IM PRN (09:40)
[2022-01-18] MEDS ORDERED: ACETAMINOPHEN 325 MG TABLET (FP) PO PRN (09:40)
[2022-01-18] MEDS: OXYTOCIN 20 UNITS in 0.9% NS 20 UNIT/1,000 ML INFUS.BAG IV SCH ×2 (10:00→22:30)
[2022-01-18] MEDS: PRENATAL VITAMINS W/ FOLIC ACID TABLET (FP) PO SCH (10:00)
[2022-01-18] MEDS ORDERED: ONDANSETRON 4 MG/2 ML VIAL IVPUSH PRN (10:05)
[2022-01-18 10:27] LABS: CORD BASE EXCESS -2.5 mmol/L (0-2); CORD HCO3 24.4 mmHg (20-29); CORD PCO2 49.4 mmHg (30-78); CORD pH 7.311 (7.14-7.44)
[2022-01-18 10:30] LABS: CORD BASE EXCESS -2.4 mmol/L (0-2); CORD HCO3 25.2 mmHg (20-29); CORD PCO2 54.4 mmHg (30-78); CORD pH 7.284 (7.14-7.44)
[2022-01-18] MEDS ORDERED: OXYTOCIN 20 UNITS in 0.9% NS 20 UNIT/1,000 ML INFUS.BAG IV ONE (11:46)
[2022-01-18] MEDS ORDERED: oxyCODONE HCL 5 MG TABLET PO PRN ×2 (21:40)
[2022-01-19] MEDS: SIMETHICONE 80 MG TAB.CHEW (FP) PO PRN ×2 (02:57→15:20)
[2022-01-19] MEDS: IBUPROFEN 600 MG TABLET (FP) PO PRN ×2 (02:57→15:20)
[2022-01-19] MEDS ORDERED: PROPOFOL 40 ML ONE (07:34)
[2022-01-19 08:40] LABS: BASO % 0.4 % (0-2.0); EOS % 0.8 % (0-4.5); HEMATOCRIT 27.6 % (32.4-45.2); HEMOGLOBIN 9.6 GM/dL (10.7-15.3); LYMPH % 19.9 % (8-40); MCH 33.8 pg (25.7-33.7); MCHC 34.7 g/dl (32.0-36.0); MEAN CELL VOLUME 97.2 fl (80-96); MEAN PLT VOLUME 8.4 fl (7.5-11.1); MONO % 5.7 % (3.8-10.2); NEUT % 73.2 % (42.8-82.8); PLATELET COUNT 154 10^3/uL (134-434); RBC 2.84 M/mm3 (3.60-5.2); RDW 12.2 % (11.6-15.6); WHITE BLOOD COUNT 9.9 K/mm3 (4.0-10.0)
[2022-01-19] MEDS: PRENATAL VITAMINS W/ FOLIC ACID TABLET (FP) PO SCH (09:12)
[2022-01-19] MEDS: ENOXAPARIN NA (PORCINE) 40 MG/0.4 ML DISP.SYRIN SQ SCH (09:12)
[2022-01-19] MEDS ORDERED: BISACODYL 10 MG SUPP.RECT RC PRN (09:40)
[2022-01-19 14:56] VITALS: RESP 18
[2022-01-20] MEDS: SIMETHICONE 80 MG TAB.CHEW (FP) PO PRN ×4 (00:06→21:24)
[2022-01-20] MEDS: IBUPROFEN 600 MG TABLET (FP) PO PRN ×4 (00:06→21:24)
[2022-01-20] MEDS: PRENATAL VITAMINS W/ FOLIC ACID TABLET (FP) PO SCH (09:30)
[2022-01-20] MEDS: ENOXAPARIN NA (PORCINE) 40 MG/0.4 ML DISP.SYRIN SQ SCH (09:31)
[2022-01-20 22:49] VITALS: PULSE 80
[2022-01-21] MEDS: SIMETHICONE 80 MG TAB.CHEW (FP) PO PRN (06:14)
[2022-01-21] MEDS: IBUPROFEN 600 MG TABLET (FP) PO PRN (06:14)
[2022-01-21] MEDS: PRENATAL VITAMINS W/ FOLIC ACID TABLET (FP) PO SCH (09:53)
[2022-01-21] MEDS: ENOXAPARIN NA (PORCINE) 40 MG/0.4 ML DISP.SYRIN SQ SCH (09:53)
[2022-01-21 10:10] LABS: BASO % 0.4 % (0-2.0); EOS % 1.7 % (0-4.5); HEMATOCRIT 30.7 % (32.4-45.2); HEMOGLOBIN 10.4 GM/dL (10.7-15.3); LYMPH % 24.4 % (8-40); MCH 32.9 pg (25.7-33.7); MCHC 33.9 g/dl (32.0-36.0); MEAN CELL VOLUME 96.9 fl (80-96); MEAN PLT VOLUME 8.3 fl (7.5-11.1); MONO % 5.5 % (3.8-10.2); PLATELET COUNT 227 10^3/uL (134-434); RBC 3.17 M/mm3 (3.60-5.2); RDW 12.5 % (11.6-15.6); WHITE BLOOD COUNT 8.3 K/mm3 (4.0-10.0)
[2022-01-21 10:44] VITALS: BP 125/77; TEMP 98.7
== END 2022-01-21 12:15 | disposition home or self-care (01) | DRG 788 ==
LOC: JLDR 05:50 → J3W 11:45
PROVIDERS: ADMIT Obstetrics & Gynecology; ATTEND Obstetrics & Gynecology
PROC: 10D00Z1 Extraction of Products of Conception, Low, Open Approach (ICD-10-PCS; principal; 2022-01-18)
DX: O24.424 Gestational diabetes mellitus in childbirth, insulin controlled (principal); Z3A.39 39 weeks gestation of pregnancy; Z37.0 Single live birth
CPT/HCPCS: 36415; 36600; 82803; 82962; 85025; 86850; 86900; 86901; 88307-TC